=== PATIENT | male | born 1980 | race Caucasian/White ===

== ENCOUNTER 2016-08-30 04:44 | Emergency (ER) | payer SELFPAY ==
[~2016-08-30] VITALS: Ht 177.8 cm; Wt 93.0 kg
[~2016-08-30 04:44] MED LIST: ALLEGRA30 MG; MUCINEX; TYLENOL; [UNRECOGNIZED DRUG - REMARK]
[2016-08-30 04:48] VITALS: BP 161/80
--- NOTE | 2016-08-30 04:52 | NUR ---
AMBULATED TO ER BED 4
--- NOTE | 2016-08-30 04:53 | NUR ---
Patient being evaluated by physician at bedside.
[2016-08-30] MEDS ORDERED: IPRATROPIUM 0.02% 0.5 MG/2.5 ML NEBU INH ONE (05:00)
[2016-08-30] MEDS ORDERED: predniSONE 20 MG TAB PO ONE (05:00)
[2016-08-30] MEDS ORDERED: ALBUTEROL 0.083% 2.5 MG/3 ML NEBU INH ONE (05:00)
--- NOTE | 2016-08-30 05:04 | NUR ---
pt c/o sob due to asthma and being out of his inhaler. states he has non-productive cough, denies fever, denies any chest pain SKIN IS PINK/WARM/DRY; AAOX4 WITH EVEN AND STEADY GAIT; LUNGS CLEAR BL; HR EVEN AND REGULAR;PATIENT STATES PAIN OF 0/10 AT THIS TIME; VSS; PATIENT POSITIONED FOR COMFORT; HOB ELEVATED; BEDRAILS UP X2; BED DOWN. ER MD MADE AWARE OF PT STATUS.
--- NOTE | 2016-08-30 05:09 | NUR ---
po med charted in error, not in pyxis to be given. supervisor labor gang notified to bring med to ER.
--- NOTE | 2016-08-30 05:28 | NUR ---
rt at bedside giving tx
--- NOTE | 2016-08-30 05:39 | NUR ---
called warehouse guard again to bring PO med to ER to give to pt.
--- NOTE | 2016-08-30 05:40 | NUR ---
po pred given.
[2016-08-30] MEDS ORDERED: predniSONE 20 MG TAB ONE (05:49)
--- NOTE | 2016-08-30 05:58 | NUR ---
Patient discharged with v/s stable. Written and verbal after care instructions given and explained. Patient alert, oriented and verbalized understanding of instructions. Ambulatory with steady gait. All questions addressed prior to discharge. ID band removed. Patient advised to follow up with PMD. Rx of albuterol and prednisone given. Patient educated on indication of medication including possible reaction and side effects. Opportunity to ask questions provided and answered.
[2016-08-30 05:59] VITALS: BP 145/75
== END 2016-08-30 05:59 | disposition home or self-care (01) ==
LOC: MED 04:44
DX: J45.909 Unspecified asthma, uncomplicated (principal); Z88.0 Allergy status to penicillin
CPT/HCPCS: 94640; 99283; J7512; J7613; J7644